=== PATIENT | male | born 1950 | race Caucasian/White ===

== ENCOUNTER 2017-06-02 07:45 | Emergency (ER) | payer OTHER ==
[~2017-06-02] VITALS: Ht 182.9 cm; Wt 86.6 kg
[2017-06-02 07:53] VITALS: TEMP 36.6; Ht 182.9 cm; Wt 86.6 kg
[2017-06-02] MEDS ORDERED: SODIUM CHLORIDE 0.9% 500ML 500 ML IV STA (07:54)
[2017-06-02] MEDS ORDERED: ONDANSETRON INJ 2 MG/ML 2 ML VIAL IV STA (07:54)
[2017-06-02] MEDS ORDERED: SODIUM CHLORIDE 0.9% 1000ML 1,000 ML IV STA (08:02)
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
[2017-06-02 08:12] LABS: HEMATOCRIT 43.7 % (42-52); MEAN CELL VOLUME 87.1 fL (80-100); MEAN CORPUSCULAR HEMOGLOBIN 29.5 pg (25-34); MEAN CORPUSCULAR HGB CONC 33.9 g/dl (32-36); MEAN PLATELET VOLUME 9.2 fL (7.4-10.4); PLATELET COUNT 291 K/uL (130-400); RED BLOOD COUNT 5.02 M/uL (4.7-6.1); WHITE BLOOD COUNT 11.43 K/uL (4.8-10.8)
[2017-06-02] MEDS: MoRPHine SULFATE 4 MG/ML 1 ML CARP\\VIAL IV PRN ×3 (08:14→10:42)
[2017-06-02] MEDS ORDERED: BUSP15TA70 PO (08:27)
[2017-06-02] MEDS ORDERED: PARO1TAB9 PO (08:27)
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
[2017-06-02 08:31] LABS: ALT/SGPT 188 U/L (12-78); BLOOD UREA NITROGEN 9 mg/dl (7-18); BUN/CREATININE RATIO 9.2 (10-20); CALCIUM 8.6 mg/dl (8.5-10.1); CARBON DIOXIDE 28 mmol/L (21-32); CHLORIDE 105 mmol/L (98-107); CREATININE 0.97 mg/dl (0.60-1.40); GLUCOSE 147 mg/dl (70-99); POTASSIUM 3.6 mmol/L (3.5-5.1); SODIUM 140 mmol/L (136-145)
[2017-06-02 08:36] LABS: ALB/GLOB RATIO 1.1 (0.9-2); ALKALINE PHOSPHATASE 102 U/L (45-117); AST/SGOT 282 U/L (15-37)
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
[2017-06-02] MEDS ORDERED: OPTIRAY 320 IV PRN (09:15)
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
[2017-06-02 10:30] VITALS: BP 127/79; PULSE 72; O2SAT 95
== END 2017-06-02 10:45 | disposition short-term general hospital (02) ==
LOC: C.EDB 07:49
DX: S22.41XA Multiple fractures of ribs, right side, initial encounter for closed fracture (principal); S22.20XA Unspecified fracture of sternum, initial encounter for closed fracture; S27.9XXA Injury of unspecified intrathoracic organ, initial encounter; R07.9 Chest pain, unspecified; M54.2 Cervicalgia; V47.5XXA Car driver injured in collision with fixed or stationary object in traffic accident, initial encounter; R51 Headache; J98.11 Atelectasis; E04.1 Nontoxic single thyroid nodule